=== PATIENT | female | born 1990 | race Caucasian/White ===

== ENCOUNTER 2017-09-25 11:44 | Inpatient (IN) ==
--- OUTSIDE RECORDS SUMMARY | 2017-09-25 11:51 | External Medical Summary | Continuity of Care Document ---
:1990 Author Organization [facility] Address [address] [place], [place] [address] Phone Care Team Providers Name Role Phone Friend DO, Jill Unavailable Unavailable Allergies, Adverse Reactions, Alerts Substance Reaction Severity Status No Known Drug Allergies Unknown Active Medications Medication Instructions Dosage Effective Dates Status Comments (start - stop) citalopram 20 mg take 1 tablet by 20 MG - Active tablet oral route every day Vitamin take 1 tablet by Not Available - Active tablet oral route every day Problems Condition Effective Dates (start - stop) Clinical Status Maternal care for oth - abnormality and damage, unsp Encounter for suprvsn of normal - , second trimester 24 weeks gestation of - Maternal care for oth - abnormality and damage, unsp Encounter for suprvsn of normal - , second trimester 20 weeks gestation of - Maternal care for oth - abnormality and damage, unsp Obesity complicating , second - trimester 24 weeks gestation of - Obesity complicating , first - trimester Smoking (tobacco) complicating - , first trimester Encntr screen for infections w sexl - mode of transmiss Encounter for screening for oth - infec/parastc diseases Encounter for suprvsn of normal - , first trimester Encounter for screening of - mother 10 weeks gestation of - Obesity complicating , second - trimester Encounter for suprvsn of normal - , second trimester 20 weeks gestation of - Obesity complicating , second - trimester Smoking (tobacco) complicating - , second trimester Encounter for suprvsn of normal - , second trimester 18 weeks gestation of - Obesity complicating , second - trimester Encounter for suprvsn of normal - , second trimester 14 weeks gestation of - Obesity complicating , third - trimester Smoking (tobacco) complicating - , third trimester Encounter for suprvsn of normal - , third trimester 28 weeks gestation of - Procedures Procedure Date Unknown Results Test Name Date and Time Measure Units Reference Range Abnormal Flag Comments Unknown Advance Directives Directive Yes / No Effective Date File Name Unknown Encounters Encounter Practice Location Reason(s) Diagnoses Date Provider Care Team Description For Visit Members Aparna Moreno Obesity Dec-1 Sobbing Referring In Womens complicating 8-[address] [employer]. Provider: Matthew LOPEZ, , third 7 700 [address] [address] trimesterSmoking Medical Sobbing L, 1522, (tobacco) [address], , third [address] [place] [id number], trimesterEncounte [address], Drive r for suprvsn of [facility] [address], tel:[phone] normal , [place], [place], [address] third [email or web address] [address], [place], [address]. weeks gestation [place]. tel:316 of tel: [phone] Aparna Moreno Dec-0 Sobbing In Womens 6-[address] [employer]. Matthew LOPEZ, 7 700 [address], [place], [place], [address] [id number], 120, [place], tel:[phone] [place], [address], [place]. tel: [phone] Aparna Moreno Maternal care for Nov-2 Sobbing Referring In Womens oth 0-201 [employer]. Provider: Matthew LOPEZ, abnormality and 7 700 [address] PO Box damage, Medical [place] L, 1522, unspEncounter for Center [address] [place], [place] [address]ta, suprvsn of normal Drive, Medical [place], , second Suite [address] [id number], [email or web address] weeks 120, Drive [place] gestation of Josh, [address], tel:+[phone] [place], [address], [place], [address]. [place]. tel: tel: [phone] Aparna Moreno Maternal care for Nov-2 Sobbing Referring In Womens Ultrasound oth 0-201 [employer]. Provider: Health JOHN, abnormality and 7 [address] [employer] PO Box damage, Medical Sob[place] L, 1522, unspObesity Center [address] [place], complicating [facility], [facility] [place], , second [address] [id number], [email or web address] weeks 120, Drive [place] gestation of Josh, [address], tel:[phone] [place], [address], [place], [address]. [place]. tel: tel: [phone] Aparna Moreno Maternal care for Oct-2 Sobbing Referring In Womens oth 5-[address] [employer]. Provider: Health JOHN, abnormality and 7 700 [employer] PO Box damage, Medical Sobbing L, 1522, unspEncounter for Center [address] [place], suprvsn of normal [facility], [facility] KARINA, , second [address] [id number], [email or web address] weeks 120, Drive US gestation of Josh, [address], tel:[phone] [place], [address], [place], [address]. [place]. tel: tel: [phone] Aparna Moreno Obesity Oct-2 Sobbing Referring In Womens Ultrasound complicating 5-[address] [employer]. Provider: Health [place], , second 7 700 [address] PO Box trimesterEncounte Medical Sobbing L, 1522, r for suprvsn of Center [address] [place], normal , Drive, Medical [place], second [address] [id number], weeks 120, Drive [place] gestation of Josh, [address], tel:+[phone] [place], [address], [place], [address]. [place]. tel: tel: [phone] Aparna Moreno Obesity Oct-1 Sobbing Referring In Womens complicating 2-[address] [employer]. Provider: Health [place], , second 7 700 [facility] Box trimesterSmoking Medical Sobbing L, 1522, (tobacco) Center [address] [place], complicating [facility], [facility], , second [address] [id number], trimesterEncounte 120, Drive US r for suprvsn of [facility] 120, tel:+ normal , KARINAJosh, second [address], [place], [address]. [email or web address] weeks [place]. tel: gestation of tel: [phone] [facility] Obesity Sep-1 Sobbing Referring In Womens complicating 5-[address] [employer]. Provider: Health [place], , second 7 700 [facility] Box trimesterEncounte Medical Sobbing L, 1522, r for suprvsn of Center [address] [place], normal , [facility], [facility], second [address] [id number], [email or web address] weeks 120, Drive US gestation of [facility] [address], tel: [place], [address], [place], [address]. [place]. tel: tel: [phone] [facility] Obesity Aug-1 Sobbing Referring In Womens complicating 4-[address] [employer]. Provider: Health [place], , first 7 700 [facility] trimesterSmoking Medical Sobbing L, 1522, (tobacco) Center [address] [place], [facility], [facility], , first [address] [id number], trimesterEncntr 120, Drive US screen for [place], [address], tel: infections w sexl [place], [place] [address], [place], [address]. transmissEncounte [place]. tel: r for screening tel: [phone] for oth [phone] infec/parastc diseasesEncounter for suprvsn of normal , first trimesterEncounte r for screening of [email or web address] weeks gestation of Associates [facility] Jan-1 Sobbing In Womens 8-[address] [employer]. Health [place], 7 700 [address], [place], Drive, [place], [address] [id number], 120, [place] Josh, tel: [place], [address], [place]. tel: [phone] Family History Family Member Diagnosis Age At Onset No family history of Diabetes No family history of Hypertension No family history of Stroke No family history of Epilepsy No family history of Colon Cancer No family history of Osteoporosis No family history of Kidney Disease No family history of Breast Cancer No family history of Lung Disease No family history of Ovarian Cancer No family history of Cardiovascular Disease No family history of Thyroid Disorder Immunizations Vaccine Date Status Comments Tdap completed Source: New Immunization Record Influenza, injectable, completed Source: New Immunization Record quadrivalent, preservative free, 3 yrs or older Payers Payer name Insurance type Covered alliance party ID Authorization(s) [employer] [place] [id number] [employer] [place] [employer] [place] Medicaid [place] [id number] [employer] [place] [id number] [employer] [place] [id number] [employer] [place] [employer] [place] Medicaid [place] [id number] Social History Type Description Quantity Date Captured Unknown Vital Signs Date / Height Weight BMI Pulse Blood Temperature Respiratory Body Head BMI Time: Rate Pressure Rate Surface Circumference percentile Area Unknown Chief Complaint And Reason For Visit Unknown Chief Complaint And Reason For Visit Reason For Referral Reason For Referral Unknown Plan Of Care Date Type Action Status Appointment Karo Fernandes BOOKED Future Order: Radiology Order Ultrasound, OB Limited ([id number]) Ordered Future Order: Radiology Order Complete OB Ultrasound > 14 Ordered Weeks ([id number]) Date Type Problem Goal Intervention Status Start Date Unknown. History Of Present Illness Encounter Date Complaint History Of Present Illness This patient has no known history of present illness Functional Status Encounter Date Functional Assessment Cognitive Assessment Unknown Medications Administered Medication Instructions Dosage Effective Dates (start - stop) Status Comments Drug Treatment Unknown Instructions Date Instruction Additional Information HIV and other routine tests risk factors identified by history anticipated course of care nutrition and weight gain counseling, special diet toxoplasmosis precautions (cats / raw meat) sexual activity exercise indications for ultrasound influenza vaccine environmental / work hazards travel tobacco (ask, advise, assess, assist and arrange) alcohol illicit / recreational drugs use of any medications (including supplements, vitamins, herbs, OTC drugs) smoking counseling domestic violence seat belt use childbirth classes / hospital facilities hospital registration genetic testing new ob handbook risks
--- OUTSIDE RECORDS SUMMARY | 2017-09-25 11:51 | External Medical Summary | Continuity of Care Document ---
:1990 Author Organization [facility] Address [address] [place], [place] [id number] Phone Care Team Providers Name Role Phone [...] abnormality and damage, unsp Obesity complicating , third - trimester Encounter for suprvsn of normal - , third trimester 30 weeks gestation of - Maternal care for oth - abnormality and damage, unsp Obesity complicating , third - trimester Encounter for suprvsn of normal - , third trimester 32 weeks gestation of - Maternal care for [...] - trimester 24 weeks gestation of - Maternal care for oth - abnormality and damage, unsp Obesity complicating , third - trimester 32 weeks gestation of - Obesity complicating , [...] weeks gestation of - Procedures Procedure Date OB Visit No Charge Results Test Name Date and Time Measure Units Reference Range Abnormal Flag Comments Unknown Advance Directives Directive Yes / No Effective Date File Name Unknown Encounters Encounter Practice Location Reason(s) Diagnoses Date Provider Care Team Description For Visit Members [facility] Maternal care for Sobbing Referring In Womens oth 7 [place]. Provider: Health [place], abnormality and 8 700 [place] PO [address] damage, Medical Sobbing L, 1522, unspObesity Center [address] [place], complic[address], Medical [place], , third [address] [id number], trimesterEncounte 120, Drive r for suprvsn of [place], [address], tel:[phone] normal , KARINA [place], third [email or web address] [address], [place], [address]. weeks gestation [place]. tel: of tel: [phone] Aparna Moreno Maternal care for Amadeo-1 Sobbing Referring In Womens Ultrasound oth 7-201 [place]. Provider: Matthew LOPEZ, abnormality and 8 700 [place] PO Box damage, Medical Sob[place] L, 1522, unspObesity Center [address] [place], complicating [address], Medical [place], , third Suite [address] [id number], [email or web address] weeks 120, Drive [place] gestation of [place], [address], tel:+[phone] K[place], [address], [place], [address]. [place]. tel: tel: [phone] Aparna Moreno Maternal care for Amadeo-0 Sobbing Referring In Womens ot 2-201 [place]. Provider: Matthew LOPEZ, abnormality and 8 700 [place] PO Box damage, Medical [place] L, 1522, unspObesity Center [address] [place], complicating [address], Medical [place], , third Suite Center [id number], trimesterEncounte 120, Drive US r for suprvsn of Josh, [address], tel:+[phone] normal , KARINA [place], third [email or web address] [address], [place], [address]. weeks gestation [place]. tel:316 of tel: [phone] Aparna Moreno Obesity Dec-1 Sobbing Referring In Womens complicating [place]. Provider: Matthew LOPEZ, , third 7 700 [place] PO Box trimesterSmoking Medical Sobbing L, 1522, (tobacco) Center [address] [place], complicating [address], Medical [place], , third Suite Center [id number], trimesterEncounte 120, Drive US r for suprvsn reg [place], [address], tel:+[phone] normal , KARINA [place], third [email or web address] [address], [place], [address]. weeks gestation [place]. tel:316 of tel: [phone] Aparna Moreno Maternal care for Nov-2 Sobbing Referring In Womens oth 0-201 [place]. Provider: Matthew LOPEZ, abnormality and 7 700 [address] PO Box damage, Medical Sobbing L, 1522, unspEncounter for Center [address] [place], suprvsn of normal Drive, Medical [place], , second Suite [address] [id number], [email or web address] weeks 120, Drive US gestation of Josh, [address], tel:[phone] [place], [address], [place], [address]. [place]. tel: tel: [phone] Aparna Moreno Maternal care for Nov-2 Sobbing Referring In Womens Ultrasound oth 0-201 [place]. Provider: Health [place], abnormality and 7 700 [place] PO Box damage, Medical Sobbing L, 1522, unspObesity Center [address] [place], complicating [facility], [facility] [place], , second Suite [address] [id number], weeks 120, Drive US gestation of Josh, [address], tel:+[phone] [place], [address], [place], [address]. [place]. tel: tel: [phone] Aparna Moreno Maternal care for Oct-2 Sobbing Referring In Womens oth 5-201 [place]. Provider: Health [place], abnormality and 7 700 [place] PO Box damage, Medical Sob[place] L, 1522, unspEncounter for Center [address] [place], suprvsn of normal [facility], [facility] [place], , second Suite Center [id number], [email or web address] weeks 120, Drive US gestation of [place], [address], tel:+[phone] [place], [address], [place], [address]. [place]. tel: tel: [phone] Aparna Moreno Obesity Oct-2 Sobbing Referring In Womens Ultrasound complicating 5-201 [place]. Provider: Health [place], , second 7 700 [place] [address] Box trimesterEncounte Medical Sobbing L, 1522, r for suprvsn of Center [address] [place], normal , Drive, [facility], second Suite [address] [id number], [email or web address] weeks 120, Drive US gestation of [place], [address], tel:+[phone] [place], [address], [place], [address]. [place]. tel: tel: [phone] Aparna Moreno Obesity Oct-1 Sobbing Referring In Womens complicating 2-201 [place]. Provider: Health [place], , second 7 700 [facility] Box trimesterSmoking Medical Sobbing L, 1522, (tobacco) Center [address] [place], complicating [facility], [facility], , second Suite Center [id number], trimesterEncounte 120, Drive US r for suprvsn of [facility] 120, tel:+ normal , [place], second [address], [place], [address]. [email or web address] weeks [place]. tel:316 gestation of tel: [phone] [facility] Obesity Sep-1 Sobbing Referring In Womens complicating 5-201 [place]. Provider: Health JOHN, , second 7 700 [facility] trimesterEncounte Medical Sobbing L, 1522, r for suprvsn of Center [address] [place], normal , [facility], [facility], second Suite Center [id number], [email or web address] weeks 120, Drive US gestation of [facility] 120, tel: [place], [address], [place], [address]. [place]. tel: tel: [phone] [facility] Obesity Aug-1 Sobbing Referring In Womens complicating 4-201 [place]. Provider: Matthew LOPEZ, , first 7 700 [facility] trimesterSmoking Medical Sobbing L, 1522, (tobacco) Center [address] [place], complicating [facility], [facility], , first Suite Center [id number], trimesterEncntr 120, Drive US screen for [place], [address], tel:2 infections w sexl [place], [place] [address], [place], [address]. transmissEncounte [place]. tel: r for screening tel: [phone] for oth [id number] infec/parastc diseasesEncounter for suprvsn of normal , first trimesterEncounte r for screening of [email or web address] weeks gestation of Aparna Moreno Jan- Sobbing In Womens 8-201 [place]. Health JOHN, 7 700 [address], Center [place], [facility], [place], [address] [id number], 120, [place], tel:[phone] [place], [address], . tel: [phone] Family History Family Member Diagnosis Age At [...] older Payers Payer name Insurance type Covered republican ID Authorization(s) BC[employer] Out Of [place] [id number] [employer] [place] [employer] [place] Medicaid [place] [id number] [employer] [place] [id number] [employer] [place] [id number] [employer] [place] [employer] [place] Medicaid [place] [id number] Social History Type Description Quantity Date Captured Alcohol Use Details No Caffeine Use Details Unknown Tobacco Use Status Smoking Status Former smoker Vital Signs Date / Height Weight BMI Pulse Blood Temperature Respiratory Body Head BMI Time: Rate Pressure Rate Surface Circumference percentile Area 226.20 34.3 132/77 -2018 lbs 9 mm[Hg] 3:18 kg/m PM eter (2) Chief Complaint And Reason For Visit Unknown Chief Complaint And Reason For Visit Reason For Referral Reason For Referral Unknown Plan Of Care Date Type Action Status Appointment Karo Fernandes BOOKED Appointment Karo Fernandes BOOKED Appointment Karo Fernandes BOOKED Appointment Karo Fernandes BOOKED Appointment Karo Fernandes BOOKED Future Order: Radiology Order Ultrasound, OB Limited ([id number]) Ordered Future Order: Radiology Order Ultrasound OB Follow-up ([id number]) Ordered Future Order: Radiology Order Complete OB Ultrasound > 14 Ordered Weeks ([id number]) Date Type Problem Goal Intervention Status Start [...]
--- OUTSIDE RECORDS SUMMARY | 2017-09-25 11:51 | External Medical Summary ---
:1990 Author Organization [employer] Care Team Providers Name Role Phone Lauren Sexton Provider Role Unavailable Allergies No Known Allergies Problems Problem Type Condition Code Onset Dates Condition Status Problem Nicotine dependence F17.200 Active Assessment Positive depression screening R68.89 Active Problem Positive depression screening R68.89 Active Medications Medication Code System Code Instructions Start End Date Status Dosage Date Monistat 1-Day [facility] 88333-691 6.5 % Vaginal not defined 01 Procedures Procedure Coding System Code Date Behavior Intervention CPT-4 17473 May 27, 2016 Behavior Assessment, Initial CPT-4 64964 May 27, 2016 Results No Known Results Summary Purpose [employer] Submission
--- OUTSIDE RECORDS SUMMARY | 2017-09-25 11:51 | External Medical Summary ---
:1991 Author Organization [facility] Address [address] [place], [place] [address] Care Team Providers Name Role Phone Friend, Jill Unavailable Unavailable PROBLEMS Type Condition ICD9-CM Code [id number] Onset Condition SNOMED Code Code Dates Status Problem Depression F32.9 Active 79002734 (emotion) Problem Positive R68.89 Active 682139585280543 depression screening Problem Nicotine F17.200 Active 54338376 dependence ALLERGIES Unknown Allergies SOCIAL HISTORY No smoking Hx information available PLAN OF CARE VITAL SIGNS MEDICATIONS Medication Instructions Dosage Frequency Start End Date Duration Status Date Citalopram Orally Once a 1 tablet May, day(s) Active Hydrobromide 20 day in the 2016 MG morning RESULTS No Results PROCEDURES No Known procedures IMMUNIZATIONS No Known Immunizations
--- OUTSIDE RECORDS SUMMARY | 2017-09-25 11:51 | External Medical Summary ---
:1990 Author Organization [employer] Care Team Providers Name Role Phone Cristina Evans Provider Role Unavailable Allergies No Known Allergies Problems Problem Type Condition Code Onset Dates Condition Status Problem Nicotine dependence F17.200 Active Problem Positive depression screening R68.89 Active Medications Medication Code System Code Instructions Start End Date Status Dosage Date Citalopram [facility] 38435-31 20 MG Orally Oct 26, 1 tablet Hydrobromide 41-01 Once a day 2015 Results No Known Results Summary Purpose [employer]Works Submission
--- OUTSIDE RECORDS SUMMARY | 2017-09-25 11:51 | External Medical Summary ---
:1990 Author Organization [employer] Care Team Providers Name Role Phone Lauren Sexton Provider Role Unavailable Allergies No Known Allergies Problems Problem Type Condition Code Onset Dates Condition Status Problem Nicotine dependence F17.200 Active Assessment Positive depression screening R68.89 Active Problem Positive depression screening R68.89 Active Medications Medication Code Code Instructions Start End Date Status Dosage System Date Citalopram [facility] 60772-51 20 MG Orally Oct 26, 1 tablet Hydrobromide 41-01 Once a day 2015 Monistat 1-Day [facility] 12699-07 6.5 % Vaginal not defined 101 Procedures Procedure Coding System Code Date Behavior Intervention CPT-4 50493 Jun 04, 2016 Results No Known Results Summary Purpose [employer]Works Submission
--- OUTSIDE RECORDS SUMMARY | 2017-09-25 11:51 | External Medical Summary | Continuity of Care Document ---
:1991 Author Organization [facility] Address [address] [place], [place] [id number] Phone Care Team Providers Name Role Phone Friend DO, Jill Unavailable Unavailable Allergies, Adverse Reactions, Alerts Substance Reaction Severity Status No Known Drug Allergies Unknown Active Medications Medication Instructions Dosage Effective Dates Status Comments (start - stop) vitamin B complex take 1 tablet 3 - Active tablet times a day Unisom take 1/2 tab every - Active (doxylamine) 25 mg night at bedtime tablet citalopram 20 mg take 1 tablet by [...] second trimester 14 weeks gestation of - Procedures Procedure Date Ultrasnd exam, preg uterus, limited Echo exam of heart Doppler color flow mapping Results Test Name Date and Time Measure Units Reference Range Abnormal Flag Comments Unknown Advance Directives Directive Yes / No Effective Date File Name Unknown Encounters Encounter Practice Location Reason(s) Diagnoses Date Provider Care Team Description For Visit Members Aparna Moreno Maternal care for Jun- Sobbing Referring In Womens oth 0-201 [place]. Provider: Matthew LOPEZ abnormality and [place] [address] damage, Medical [place], 1522, unspEncounter for Center [address] [place], suprvsn of normal [facility] [place], , second Suite Center , [email or web address] weeks 120, Drive US gestation of [facility] 120, tel:+[phone] [place], [address], [place], [address]. [place]. tel: tel: [phone] Aparna Moreno Maternal care for Jun- [place] Referring In Womens Ultrasound oth 0-201 [place]. Provider: julio Perales and 7 [address] damage, Medical [place], 1522, unspObesity Center [address] [place], complicating [facility], [facility], , second Suite Center [id number], [email or web address] weeks 120, Drive US gestation of [place], [facility] 120, tel:+[phone] KARINAJosh, [address], [place], [address]. [place]. tel: tel: [phone] Associates [facility] Maternal care for Oct-2 Sobbing Referring In Womens oth [place]. Provider: Matthew LOPEZ, abnormality and 7 [address] [place] [address] damage, Medical [place], 1522, unspEncounter for Center [address] [place], suprvsn of normal [facility], Medical [place], , second Suite Center [id number], weeks 120, Drive US gestation of [place], [address], tel:+[phone] [place], [address], [place], [address]. [place]. tel: tel: [phone] [facility] Obesity Oct-2 Sobbing Referring In Womens Ultrasound complicating [place]. Provider: Matthew LOPEZ, , second 7 700 [facility] Box trimesterEncounte Medical [place] L, 1522, r for suprvsn of Center [address] [place], normal , Drive, Medical [place], second Suite Center [id number], weeks 120, Drive US gestation of [place], [address], tel:3162 [place], [address], [place], [address]. [place]. tel: tel: [phone] [facility] Obesity Oct-1 Sobbing Referring In Womens complicating [place]. Provider: Matthew LOPEZ, , second 7 700 [facility] Box trimesterSmoking Medical [place] L, 1522, (tobacco) Center [address] [place], complicating [facility], Medical [place], , second Suite Center [id number], trimesterEncounte 120, Drive US r for suprvsn of [facility] 120, tel:[phone] normal , KARINA, [place], [place] [address], [place], [address]. weeks [place]. tel: gestation of tel: [phone] [facility] Obesity Sep-1 Sobbing Referring In Womens complicating [place]. Provider: Matthew LOPEZ, , second 7 [address] trimesterEncounte Medical [place] L, 1522, r for suprvsn of Center [address] [place], normal , Drive, Medical [place], second Suite Center [id number], [email or web address] weeks 120, Drive US gestation of [place], [address], tel: KARINA, [place], [address], [place], [address]. [place]. tel: tel: [phone] [facility] Obesity Mar- Sobbing Referring In Womens complicating 4-201 [place]. Provider: [facility] [place], , first 7 700 [place] PO Box trimesterSmoking Medical [place] L, 1522, (tobacco) Center [address] [place], [facility], Medical [place], , first Suite Center [id number], trimesterEncntr 120, Drive US screen for Josh, [address], tel: infections w sexl KARINA, [place], [place] [address], [place], [address]. transmissEncounte [place]. tel: r for screening tel: [phone] for oth [phone] infec/parastc diseasesEncounter for suprvsn of normal , first trimesterEncounte r for screening of [email or web address] weeks gestation of Aparna Moreno Jan- Sobbing In Womens 8-201 [place]. Health [place], 7 700 PO [address] Medical 1522, Center [place], [facility], [place], [address] [id number], 120, [place] Josh, tel: KARINA, [address], [place]. tel: [phone] Family History Family Member Diagnosis Age At [...] Thyroid Disorder Immunizations Vaccine Date Status Comments Influenza, injectable, completed Source: New Immunization Record quadrivalent, preservative free, 3 yrs or older Payers Payer name Insurance type Covered alliance party ID Authorization(s) BCBS Out Of State [id number] [employer] [place] [employer] - Medicaid [place] [id number] BCBS Out Of State [id number] Social History Type Description Quantity Date Captured [...] Future Order: Radiology Order Ultrasound, OB Limited ([id number]) Ordered Future Order: Radiology Order Complete OB Ultrasound > 14 Ordered Weeks ([id number]) Date Type Problem Goal Intervention Status Start [...]
--- OUTSIDE RECORDS SUMMARY | 2017-09-25 11:51 | External Medical Summary ---
:1990 Author Organization [employer] Care Team Providers Name Role Phone Meena Steel Provider Role Unavailable Allergies, Adverse Reactions, Alerts Substance Reaction Event Type N.K.D.A. Info Not Available Non Drug Allergy Problems Problem Type Condition Code Onset Dates Condition Status Assessment OCP (oral contraceptive pills) V25.01 Active initiation Assessment Screening for cervical cancer V76.2 Active Assessment Encounter for IUD removal V25.12 Active Medications Medication Code System Code Instructions Start Date End Date Status Dosage Sprintec 28 [facility] 44387-501 0.25-35 MG-MCG December 19 tablet 6-58 Orally Once a day 2014 Procedures Procedure Coding System Code Date REMOVE INTRAUTERINE DEVICE CPT-4 70164 December 19, 2014 OFFICE VISIT EST PATIENT LEVEL 3 CPT-4 53667 December 19, 2014 URINE TEST CPT-4 62249 December 19, 2014 Vital Signs Date/Time: December 19, 2014 BMI 21.89 Index Weight 157 lbs Height 71 in Blood Pressure Diastolic 68 mm Hg Blood Pressure Systolic 112 mm Hg Cardiac Monitoring Heart Rate 68 /min Temperature 97 F Respiratory Rate 16 /min Results No Known Results Summary Purpose eClinicalWorks Submission
--- OUTSIDE RECORDS SUMMARY | 2017-09-25 11:52 | External Medical Summary | Continuity of Care Document ---
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 Provider: Matthew LOPEZ, abnormality and 7 700 [place] PO [address] damage, Medical [place], 1522, unspEncounter for Center [address] [place], suprvsn of normal [facility], , second Suite Center , [email or web address] weeks 120, Drive US gestation of [facility] 120, tel:+ [place], [address], [place], [address]. [place]. tel: tel: [phone] Aparna Moreno Obesity Oct-2 Sobbing Referring In Womens Ultrasound complicating [place]. Provider: Matthew LOPEZ, , second 7 700 [place] PO Box trimesterEncounte Medical [place] L, 1522, r for suprvsn of Center [address] [place], normal , Drive, [facility], second Suite Center [id number], [email or web address] weeks 120, Drive US gestation of [facility] 120, tel:316 Josh [place], [address], [place], [address]. [place]. tel: tel: [phone] Aparna Moreno Obesity Oct-1 Sobbing Referring In Womens complicating [place]. Provider: Matthew LOPEZ, , second 7 700 [place] PO Box trimesterSmoking Medical [place] L, 1522, (tobacco) Center [address] [place], complicating [facility], , second Suite Center [id number], trimesterEncounte 120, Drive US r for suprvsn of [place], [address], tel: normal , K[place]INAJosh, [place] [address], [place], [address]. [email or web address] weeks [place]. tel: gestation of tel: [phone] [facility] Obesity Sep-1 Sobbing Referring In Womens complicating 5-201 [place]. Provider: Health [place], , second 7 700 [facility] trimesterEncounte Medical [place] L, 1522, r for suprvsn of Center [address] [place], normal , [facility], [facility], second Suite Center [id number], [email or web address] weeks 120, Drive US gestation of [place], [facility] 120, tel: KARINAJosh, [address], [place], [address]. [place]. tel: tel: [phone] [facility] Obesity Aug- Sob[place] Referring In Womens complicating 4-201 [place]. Provider: [facility] [place], , first 7 700 [facility] trimesterSmoking Medical [place] L, 1522, (tobacco) Center [address] [place] [address], complicating [facility], [facility], , first Suite Center [id number], trimesterEncntr 120, Drive US screen for [place], [facility] 120, tel: infections w sexl [place], [place] [address], [place], [address]. transmissEncounte [place]. tel: r for screening tel: [phone] for oth [id number] infec/parastc diseasesEncounter for suprvsn of normal , first trimesterEncounte r for screening of weeks gestation of Aparna Moreno Jan- Sobbing In Womens 8-201 [place]. Health [place], 7 700 [address] Medical [address], Center [place], Drive, [place], [address] [id number], 120, [place] Josh, tel: K[place], [address], [place]. tel: [phone] Family History Family Member Diagnosis Age At [...] older Payers Payer name Insurance type Covered constitution party ID Authorization(s) BCBS Out Of State [id number] [employer] [place] [employer] - Medicaid [place] [id number] BCBS Out Of [facility] [id number] Social History Type Description Quantity Date Captured Alcohol Use Details No Caffeine Use Details Unknown Tobacco Use Status Smoking Status Former smoker Vital Signs Date / Height Weight BMI Pulse Blood Temperature Respiratory Body Head BMI Time: Rate Pressure Rate Surface Circumference percentile Area 201.00 30.5 134/2017 lbs 6 mm[Hg] 1:50 kg/m PM eter (2) Chief Complaint And Reason For Visit Unknown Chief Complaint And Reason For Visit Reason For Referral Reason For Referral Unknown Plan Of Care Date Type Action Status Appointment Karo Fernandes BOOKED Appointment Karo Fernandes BOOKED Future Order: Radiology Order Complete OB Ultrasound > 14 Ordered Weeks ([id number]) Date Type Problem Goal Intervention Status Start [...]
--- OUTSIDE RECORDS SUMMARY | 2017-09-25 11:52 | External Medical Summary ---
:1991 Author Name GENERATED, SYSTEM Care Team Providers Name Role Phone MD EFRAIN, KRISHNA Primary Care Provider [phone] Reason For Visit Chief Complaint PATELLA DISLOCATION Social History Functional Status Vital Signs Results Problems Encounter Diagnosis No relevant problems exist. Encounters Encounter Diagnosis No relevant problems exist. Plan of Care Procedures Completed , on 08/03/2009 12:00 AM Immunizations No immunizations administered or ordered. Hospital Course Hospital Discharge Instructions Allergies, Adverse Reactions, Alerts Latex Allergy has not been assessed.IV Contrast Allergy has not been assessed.No Known Drug Allergies. Medication Medication reconciliation has not been performed.
--- OUTSIDE RECORDS SUMMARY | 2017-09-25 11:52 | External Medical Summary | Continuity of Care Document ---
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 Provider: Health [place], abnormality and 8 [address] [place] [address] damage, Medical [place], 1522, unspObesity Center [address] [place], complicating [address], Medical [place], , third Suite Center [id number], trimesterSmoking 120, Drive US (tobacco) [place], [address], tel:+[phone] complicating Josh [place], , [place] [address], [place], [address]. [email or web address] weeks [place]. tel: gestation of tel: [phone] Aparna Moreno Maternal care for Aug-1 [place] Referring In Womens ot [place]. Provider: Matthew LOPEZ, abnormality and 8 [address] [place] PO [address] damage, Medical [place], 1522, unspObesity Center [address] [place], complicating [address], Medical [place], , third Suite Center [id number], trimesterEncounte 120, Drive US r for suprvsn of [place], [address], tel:+[phone] normal , [place], [place], third [email or web address] [address], [place], [address]. weeks gestation [place]. tel:316 of tel: [phone] Aparna Moreno Maternal care for Aug- Sob[place] Referring In Womens [facility] [place]. Provider: Matthew LOPEZ, abnormality and 8 700 [place] PO [address] damage, Medical [place], 1522, unspObesity Center [address] [place], complicating Drive, Medical [place], , third Suite Center [id number], [email or web address] weeks 120, Drive US gestation of [place], [address], tel:+3162 [place], [address], [place], [address]. [place]. tel: tel: [phone] Aparna Moreno Maternal care for Amadeo-0 Sob[place] Referring In Womens [facility] [place]. Provider: Matthew LOPEZ, abnormality and 8 700 [place] PO [address] damage, Medical [place], 1522, unspObesity Center [address] [place], complicating [address], Medical [place], , third Suite Center [id number], trimesterEncounte 120, Drive US r for suprvsn of [place], [address], tel:+[phone] normal , [place], [place], third [email or web address] [address], [place], [address]. weeks gestation [place]. tel: of tel: [phone] Aparna Moreno Obesity Dec-1 Sobbing Referring In Womens complicating 8-201 [place]. Provider: Matthew LOPEZ, , third 7 700 [place] PO Box trimesterSmoking Medical [place] L, 1522, (tobacco) Center [address] [place], complicating [address], Medical [place], , third Suite Center [id number], trimesterEncounte 120, Drive US r for suprvsn of [facility] [address], tel:+316 normal , KARINA Josh, third [email or web address] [address], [place], [address]. weeks gestation [place]. tel: of tel: [phone] Aparna Moreno Maternal care for Nov-2 Sob[place] Referring In Womens oth 0-201 [place]. Provider: Matthew LOPEZ, abnormality and 7 [address] [place] PO [address] damage, Medical [place] L, 1522, unspEncounter for Center [address] [place], suprvsn of normal Drive, [facility] [place], , second Suite Center [id number], [email or web address] weeks 120, Drive US gestation of [place], [address], tel:316 KAR[place], [address], [place], [address]. [place]. tel: tel: [phone] Aparna Moreno Maternal care for Nov-2 Sobbing Referring In Womens Ultrasound oth 0-201 [place]. Provider: Matthew LOPEZ, abnormality and 7 700 [place] PO Box damage, Medical [place], 1522, unspObesity Center [address] [place], complicating [address], Medical [place], , second Suite Center [id number], [email or web address] weeks 120, Drive US gestation of [place], [address], tel:316 KAR[place], [address], [place], [address]. [place]. tel: tel: [phone] Aparna Moreno Maternal care for Oct-2 Sobbing Referring In Womens oth 5-201 [place]. Provider: Matthew LOPEZ, abnormality and 7 700 [place] [address] damage, Medical [place] L, 1522, unspEncounter for Center [address] [place], suprvsn of normal Drive, Medical [place], , second Suite Center [id number], [email or web address] weeks 120, Drive US gestation of Josh [address], tel: [place], [address], [place], [address]. [place]. tel: tel: [phone] Associates [facility] Obesity Oct-2 [place] Referring In Womens Ultrasound complicating 5- [place]. Provider: Health [place], , second 7 700 [facility] trimesterEncounte Medical [place] L, 1522, r for suprvsn of Center [address] [place], normal , Drive, Medical [place], second Suite Center [id number], [email or web address] weeks 120, Drive US gestation of Josh [address], tel: [place], [address], [place], [address]. [place]. tel: tel: [phone] Associates [facility] Obesity Oct-1 Sobbing Referring In Womens complicating 2-201 [place]. Provider: Health [place], , second 7 700 [facility] trimesterSmoking Medical [place] L, 1522, (tobacco) Center [address] [place], complicating [facility], [facility], , second Suite Center [id number], trimesterEncounte 120, Drive US r for suprvsn of [place], [address], tel:+2 normal , [place], [place] [address], [place], [address]. [email or web address] weeks US. tel: gestation of tel: [phone] Associates [facility] Obesity Sep-1 Sobbing Referring In Womens complicating 5-201 [place]. Provider: Health [place], , second 7 700 [facility] trimesterEncounte Medical [place] L, 1522, r for suprvsn of Center [address] [place], normal , [facility], [facility], second Suite Center [id number], [email or web address] weeks 120, Drive US gestation of Josh [address], tel:3162 [place], [address], [place], [address]. [place]. tel: tel: [phone] Associates [facility] Obesity Aug-1 Sobbing Referring In Womens complicating 4-201 [place]. Provider: Health [place], , first 7 700 [place] PO Box trimesterSmoking Medical [place] L, 1522, (tobacco) Center [address] [place], [facility], Medical [place], , first Suite Center [id number], trimesterEncntr 120, Drive US screen for [place], [address], tel:+3162 infections [place] sexl [place], [place], [place] [address], [place], [address]. transmissEncounte [place]. tel:+316 r for screening tel: [phone] for oth [id number] infec/parastc diseasesEncounter for suprvsn of normal , first trimesterEncounte r for screening of [email or web address] weeks gestation of Associates Josh Sobbing In Womens 8201 [place]. Health [place], 7 700 [address], Center [place], [facility], [place], [address] [id number], 120, [place], tel:+[phone] KARINA, [address], . tel: [phone] Family History Family Member Diagnosis Age At [...] republican ID Authorization(s) BCBS Out Of State [id number] [employer] [place] [employer] - Medicaid [place] [id number] BCBS Out Of State [id number] BCBS Out Of [facility] [id number] [employer] [place] [employer] - Medicaid [place] [id number] Social History Type Description Quantity Date Captured Alcohol Use Details No Caffeine Use Details Tobacco Use Status Never smoked tobacco Smoking Status Former smoker Vital Signs Date / Height Weight BMI Pulse Blood Temperature Respiratory Body Head BMI Time: Rate Pressure Rate Surface Circumference percentile Area 233.20 35.4 132/77 -2018 lbs 5 mm[Hg] 3:49 kg/m PM eter (2) Chief Complaint And Reason For Visit Unknown Chief Complaint And Reason For Visit Reason For Referral Reason For Referral Unknown Plan Of Care Date Type Action Status Appointment Karo Fernandes BOOKED Appointment Karo Fernandes BOOKED Appointment Karo Fernandes BOOKED Appointment Karo Fernandes BOOKED Future Order: Radiology Order Ultrasound, OB Limited ([id number]) Ordered Future Order: Radiology Order Ultrasound OB Follow-up ([id number]) Ordered Future Order: Radiology Order Complete OB Ultrasound > 14 Ordered Weeks ([id number]) Date Type Problem Goal Intervention Status Start [...]
--- OUTSIDE RECORDS SUMMARY | 2017-09-25 11:52 | External Medical Summary | Continuity of Care Document ---
:1991 Author Organization [facility] Address [address] [place], [place] [id number] Phone Care Team Providers Name Role Phone [...] Visit Members Aparna Moreno Maternal care for Sobbing Referring In Womens oth [place]. Provider: Matthew LOPEZ, abnormality and 8 700 [place] PO Box damage, Medical Sobbing L, 1522, unspObesity Center 700 [facility], [facility], , third Suite Center [id number], trimesterEncounte 120, Drive US r for suprvsn of [place], [address], tel:[phone] normal , [place], [place], [address] third [id number] [address], [place], [address]. weeks gestation [place]. tel: of tel: [phone] Aparna Moreno Obesity Sobbing Referring In Womens complicating 8 [place]. Provider: Health JOHN, , third 7 700 [place] PO Box trimesterSmoking Medical Sobbing L, 1522, (tobacco) Center 700 [facility], [facility] [place], , third Suite Center [id number], trimesterEncounte 120, Drive US r for suprvsn of [place] [address], tel:+2 normal , [place] COLL[place], third [email or web address] [address], [place], [address]. weeks gestation [place]. tel:316 of tel: [phone] Aparna Moreno Dec-1 Sobbing In Womens 4-201 [place]. Health JOHN, 7 700 PO [address] Medical [address], Center [place], Drive, [place], [address] [id number], 120, [place], tel:+316 [place], [address], [place]. tel: [phone] Aparna Moreno Maternal care for Nov-2 Sobbing Referring In Womens ot 0-201 [place]. Provider: Matthew LOPEZ, abnormality and 7 700 [place] PO Box damage, Medical Sobbing L, 1522, unspEncounter for Center 700 [place], suprvsn of normal [facility], [facility] KARINA, , second Suite Center [id number], [email or web address] weeks 120, Drive US gestation of Josh, [address], tel:+3162 [place], [address], [place], [address]. [place]. tel: tel: [phone] Aparna Moreno Maternal care for Nov-2 Sobbing Referring In Womens Ultrasound ot 0-201 [place]. Provider: Matthew LOPEZ, abnormality and 7 700 [place] PO Box damage, Medical Sobbing L, 1522, unspObesity Center 700 [place], complicating [facility], [facility] KARINA, , second Suite Center [id number], [email or web address] weeks 120, Drive US gestation of [place], [address], tel:+[phone] [place], [address], [place], [address]. [place]. tel: tel: [phone] Aparna Moreno Maternal care for Oct-2 Sobbing Referring In Womens ot 5-201 [place]. Provider: Matthew LOPEZ, abnormality and 7 700 [place] PO Box damage, Medical Sobbing L, 1522, unspEncounter for Center 700 [place], suprvsn of normal [facility], [facility] KARINA, , second Suite Center [id number], weeks 120, Drive US gestation of Josh, [address], tel: [place], [address], [place], [address]. [place]. tel: tel: [phone] Associates Josh Obesity Oct-2 Sobbing Referring In Womens Ultrasound complicating 5-201 [place]. Provider: Health JOHN, , second 7 700 [facility] Medical Sobbing L, 1522, r for suprvsn of Center 700 [place], normal , Drive, Medical [place], second Suite Center [id number], [email or web address] weeks 120, Drive US gestation of Josh, [address], tel: [place], [address], [place], [address]. [place]. tel: tel: [phone] Associates Josh Obesity Oct-1 Sobbing Referring In Womens complicating 2-201 [place]. Provider: Health [place], , second 7 700 [facility] trimesterSmoking Medical Sobbing L, 1522, (tobacco) Center [address] [place] [address], [address], Medical [place], , second Suite Center [id number], trimesterEncounte 120, Drive US r for suprvsn of [place], [address], tel: normal , [place], second [address], [place], [address]. [email or web address] weeks [place]. tel: gestation of tel: [phone] Associates Josh Obesity Sep-1 Sobbing Referring In Womens complicating 5-201 [place]. Provider: Health JOHN, , second 7 700 [facility] trimesterEncounte Medical Sobbing L, 1522, r for suprvsn of Center 700 [place], normal , Drive, Medical [place], second Suite Center [id number], [email or web address] weeks 120, Drive US gestation of Josh, [address], tel:2 [place], [address], [place], [address]. [place]. tel: tel: [phone] Associates Josh Obesity Aug-1 Sobbing Referring In Womens complicating 4-201 [place]. Provider: Health JOHN, , first 7 700 [facility] Box trimesterSmoking Medical Sobbing L, 1522, (tobacco) Center 700 [place], [facility], [facility], , first Suite Center [id number], trimesterEncntr 120, Drive US screen for [place], [address], tel:+ infections [place] sexl [place], [place], [place] [address], [place], [address]. transmissEncounte [place]. tel:+316 r for screening tel: [phone] for oth [phone] infec/parastc diseasesEncounter for suprvsn of normal , first trimesterEncounte r for screening of [email or web address] weeks gestation of Associates Josh Sobbing In Womens 8-201 [facility], 7 700 [address] Medical [address], [facility], [place], [place], [address] [id number], 120, [place], tel: KAR[place], [address], . tel: [phone] Family History Family Member Diagnosis Age At [...] older Payers Payer name Insurance type Covered libertarian ID Authorization(s) BCBS Out Of [facility] [id number] [employer] [place] [employer] - Medicaid [place] [id number] BCBS Out Of State [id number] BCBS Out Of [facility] [id number] [employer] [place] [employer] - [place] [id number] Social History Type Description Quantity Date Captured [...] Future Order: Radiology Order Ultrasound, OB Limited (33718) Ordered Future Order: Radiology Order Complete OB Ultrasound > 14 Ordered Weeks (25484) Date Type Problem Goal Intervention Status Start [...]
--- OUTSIDE RECORDS SUMMARY | 2017-09-25 11:52 | External Medical Summary | Continuity of Care Document ---
:1991 Author Organization [facility] Address [address] [place], [place] [phone] Phone Allergies, Adverse Reactions, Alerts Substance Reaction Severity Status Substance Type Unknown Medications Medication Instructions Dosage Effective Dates Status [...] Effective Dates (start - stop) Clinical Status No Known Problems Procedures Procedure Date Unknown Results Test Name Date and Time Measure Units Reference Range Abnormal Flag Comments Unknown Advance Directives Directive Yes / No Effective Date File Name Unknown Encounters Encounter Practice Location Reason(s) Diagnoses Date Provider Care Team Description For Visit Members [facility] 2016 [place], [address], [address], [id number], [address], tel:[phone] [place], [place], [address], . tel:[phone] Family History Family Member Diagnosis Age At Onset Unknown Immunizations Vaccine Date Status Comments Unknown Payers Payer name Insurance type Covered green party ID Authorization(s) Unknown Social History Type Description Quantity Date Captured Unknown Vital Signs Date / Height Weight BMI Pulse Blood Temperature Respiratory Body Head BMI Time: Rate Pressure Rate Surface Circumference percentile Area Unknown Chief Complaint And Reason For Visit Unknown Chief Complaint And Reason For Visit Reason For Referral Reason For Referral Unknown Plan Of Care Date Type Action Status Appointment Karo Fernandes BOOKED Date Type Problem Goal Intervention Status Start Date Unknown. History Of Present Illness Encounter Date Complaint History Of Present Illness This patient has no known history of present illness Functional Status Encounter Date Functional Assessment Cognitive Assessment Unknown Medications Administered Medication Instructions Dosage Effective Dates (start - stop) Status Comments Drug Treatment Unknown Instructions Date Instruction Additional Information Unknown
--- OUTSIDE RECORDS SUMMARY | 2017-09-25 11:52 | External Medical Summary ---
:1991 Author Organization [employer] Care Team Providers Name Role Phone Friend, Jill Provider Role Unavailable Allergies, Adverse Reactions, Alerts Substance Reaction Event Type N.K.D.A. Info Not Available Non Drug Allergy Problems Problem Type Condition Code Onset Dates Condition Status Problem Positive depression screening R68.89 Active Problem Nicotine dependence F17.200 Active Problem Depression (emotion) F32.9 Active Assessment Dysuria R30.0 Active Assessment Depression (emotion) F32.9 Active Medications Medication Code Code Instructions Start End Date Status Dosage System Date Citalopram [facility] 18047-49 20 MG Orally May 27, 1 tablet Hydrobromide 41-01 Once a day in 2016 the morning Ciprofloxacin HCl [facility] 93021-56 500 MG Orally Jun 09, Jun 14, 1 tablet 37-01 Twice a day 2015 2015 Procedures Procedure Coding System Code Date URINE CULTURECOLONY COUNT CPT-4 85703 Jun 09, 2016 OFFICE VISIT EST PATIENT LEVEL 3 CPT-4 51274 Jun 09, 2016 URINALYSIS NONAUTO WO SCOPE CPT-4 01981 Jun 09, 2016 Vital Signs Date/Time: Jun 09, 2016 BMI 24.57 Index Weight 176.2 lbs Height 71 in Blood Pressure Diastolic 70 mm Hg Blood Pressure Systolic 112 mm Hg Cardiac Monitoring Heart Rate 72 /min Temperature 98.2 F Oximetry 98 % Respiratory Rate 18 /min Results No Known Results Summary Purpose eClinicalWorks Submission
--- OUTSIDE RECORDS SUMMARY | 2017-09-25 11:52 | External Medical Summary | Continuity of Care Document ---
:1991 Author Organization [facility] Address [address] [place], [place] [phone] Phone Care Team Providers Name Role Phone [...] Effective Dates (start - stop) Clinical Status Obesity complicating , first - trimester Smoking (tobacco) complicating - , first trimester Encntr screen for infections w sexl - mode of transmiss Encounter for screening for oth - infec/parastc diseases Encounter for suprvsn of normal - , first trimester Encounter for screening of - mother 10 weeks gestation of - Procedures Procedure Date OB US < 14 WKS, SINGLE FETUS Initial OB Visit No Charge Infct antign, chlamydia trac, ampl Urine Culture Glucose test OB Panel With An HIV Neisseria Gonorrhoeae, Amplification Venpnctr fngr/heel/ear stick routne Results Test Name Date and Time Measure Units Reference Range Abnormal Flag Comments Panel Description: OBSTETRIC PANEL WHITE BLOOD CELL 7.3 Thousand/uL 3.8-10.8 N COUNT 16:05:00 RED BLOOD CELL 3.71 Million/uL 3.80-5.10 L COUNT 16:05:00 HEMOGLOBIN 12.3 g/dL 11.7-15.5 N 16:05:00 HEMATOCRIT 35.4 % 35.0-45.0 N 16:05:00 MCV 95.4 fL 80.0-100.0 N 16:05:00 MCH 33.2 pg 27.0-33.0 H 16:05:00 MCHC 34.7 g/dL 32.0-36.0 N 16:05:00 RDW 11.9 % 11.0-15.0 N 16:05:00 PLATELET COUNT 196 Thousand/uL 140-400 N 16:05:00 MPV 10.1 fL 7.5-12.5 N 16:05:00 ABSOLUTE 4701 cells/uL 5626-1749 N NEUTROPHILS 16:05:00 ABSOLUTE 1869 cells/uL 850-3900 N LYMPHOCYTES 16:05:00 ABSOLUTE 482 cells/uL 200-950 N MONOCYTES 16:05:00 ABSOLUTE 219 cells/uL 15-500 N EOSINOPHILS 16:05:00 ABSOLUTE 29 cells/uL 0-200 N BASOPHILS 16:05:00 NEUTROPHILS 64.4 % N 16:05:00 LYMPHOCYTES 25.6 % N 16:05:00 MONOCYTES 6.6 % N 16:05:00 EOSINOPHILS 3.0 % N 16:05:00 BASOPHILS 0.4 % N 16:05:00 ANTIBODY SCREEN, NO ANTIBODIES N RBC W/REFL ID, 16:05:00 DETECTED Reference range TITER AND AG No antibodies detected This assay is a screening test for the detection of red blood cell antibodies. The test is not to be used for pretransfusion screening or for the medical management of an alloimmunized . ABO GROUP O 16:05:00 RH TYPE RH(D) 16:05:00 POSITIVE RPR (DX) W/REFL NON-REACTIVE NON-REACTIV N TITER AND 16:05:00 E CONFIRMATORY TESTING HEPATITIS B NON-REACTIVE NON-REACTIV N SURFACE ANTIGEN 16:05:00 E RUBELLA ANTIBODY 11.50 index N Index (IGG) 16:05:00 Interpretation ----- <0.90 Not consistent with Immunity 0.90-0.99 Equivocal > or=1.00 Consistent with Immunity The presence of rubella IgG antibody suggests immunization or past or current infection withrubella virus.Test performed at [id number] [place] [address]Hlutdyx r: JUSTO JUDD DO,MPH Panel Description: Glucose [Mass/volume] in Serum or Plasma --1 hour post 50 g glucose PO GLUCOSE, GESTATIONAL 68 mg/dL <140 N Test performed at [facility] SCREEN (50G)-140 16:05:00 DIAGNOSTICS [id number] [place] [address]Nplndvjv: JUSTO JUDD DO,MPH Panel Description: HIV 1/2 ANTIGEN/ANTIBODY,FOURTH GENERATION W/RFL HIV NON-REACTIVE NON-REACTIVE N HIV-1 antigen and HIV-1/HIV- 2 antibodies were AG/AB, 16:05:00 notdetected. There is no laboratory evidence of 4TH GEN HIVinfection. PLEASE NOTE: This information has been disclosed toyou from records whose confidentiality may beprotected by state law. If your state requires suchprotection, then the state law prohibits you frommaking any further disclosure of the informationwithout the specific written consent of the personto whom it pertains, or as otherwise permitted by law.A general authorization for the release of medical orother information is NOT sufficient for this purpose. For additional information please refer tohttp://education.kingsky/faq/UBW224(This link is being provided for informational/educational purposes only.) The performance of this assay has not been clinicallyvalidated in patients less than 2 years old. Test performed at [facility] [id number] [place] [address]Xadrywpx: JUSTO JUDD DO,MPH Panel Description: Bacteria identified in Urine by Culture CULTURE, URINE, 15:26:00 SEE NOTE CULTURE, URINE, ROUTINE ROUTINE MICRO NUMBER: [id number] TEST STATUS: FINAL SPECIMEN SOURCE: URINE SPECIMEN QUALITY: ADEQUATE RESULT: No GrowthREPORT COMMENT:RTest performed at [facility] [address] [address]Fpaccccq: JUSTO JUDD DO,MPH Panel Description: CHLAMYDIA/N. GONORRHOEAE RNA, TMA CHLAMYDIA NOT DETECTED NOT DETECTED N TRACHOMATIS RNA, 15:00:00 TMA NEISSERIA NOT DETECTED NOT DETECTED N GONORRHOEAE RNA, 15:00:00 TMA [id number] SEE NOTE This test was 15:00:00 performed using the APTIMA COMBO2 Assay([employer] The analytical performance characteristics of this assay, when used to test SurePath specimens havebeen determined by [employer] Test performed at [facility] [address] [address]Fpxmetxf: JUSTO JUDD DO,MPH Advance Directives Directive Yes / No Effective Date File Name Unknown Encounters Encounter Practice Location Reason(s) Diagnoses Date Provider Care Team Description For Visit Members Aparna Moreno Obesity Sobbing Referring In Womens complicating 4-201 [place]. Provider: Health PA, , first 7 700 [facility] Box trimesterSmoking Medical Sobbing L, 1522, (tobacco) Center 700 [place], [facility], , first Suite Center [id number], trimesterEncntr 120, Drive US screen for [place], [address], tel:+[phone] infections w sexl [place], [address] [place] [address], [place], [address]. transmissEncounter [place]. tel:+316 for screening for tel: [phone] [facility] infec/parastc [id number] diseasesEncounter for suprvsn of normal , first trimesterEncounter for screening of [email or web address] weeks gestation of Associates Josh Sobbing In Women 8-201 [facility], 7 700 [place], [place], [place], [address] [id number], 120, [place], tel:5745 [place], [address], [place]. tel: [phone] Family History Family Member Diagnosis Age At [...] Thyroid Disorder Immunizations Vaccine Date Status Comments Unknown Payers Payer name Insurance type Covered libertarian ID Authorization(s) BCBS Out Of State [id number] Social History Type Description Quantity Date Captured Alcohol Use Details No Caffeine Use Details Tobacco Use Status Never smoked tobacco Smoking Status Former smoker Non-Smoking Tobacco Use : No Details Available : No Details Available Details Vital Signs Date / Height Weight BMI Pulse Blood Temperature Respiratory Body Head BMI Time: Rate Pressure Rate Surface Circumference percentile Area 176.20 26.7 126/76 -2017 lbs 9 mm[Hg] 2:31 kg/m PM eter (2) Chief Complaint And [...]
--- OUTSIDE RECORDS SUMMARY | 2017-09-25 11:52 | External Medical Summary ---
:1991 Author Organization eClinicalWorks Care Team Providers Name Role Phone Friend, Jill Provider Role Unavailable Allergies, Adverse Reactions, Alerts Substance Reaction Event Type N.K.D.A. Info Not Available Non Drug Allergy Problems Problem Type Condition Code Onset Dates Condition Status Assessment Encounter for smoking cessation Z71.6 Active counseling Assessment Nicotine dependence F17.200 Active Problem Nicotine dependence F17.200 Active Medications Medication Code Code Instructions Start End Date Status [place] [address]-10 0.5 MG X 11 Jul 16, Aug 15, as directed Starting Month 71-02 & 1 MG X 42 2014 2015 Casey Orally [place] [address]-67 0.25-35 MG-MCG December 19, 1 tablet 16-58 Orally Once a 2014 day Chantix NDC 55378-23 1 MG Orally Jul 16, November 12, 1 tablet Continuing 69-12 Twice a day 2014 2015 Month Casey Procedures Procedure Coding System Code Date OFFICE VISIT EST PATIENT LEVEL 3 CPT-4 69094 Jul 16, 2015 Vital Signs Date/Time: Jul 16, 2015 BMI 25.24 Index Weight 181.0 lbs Height 71 in Blood Pressure Diastolic 64 mm Hg Blood Pressure Systolic 126 mm Hg Cardiac Monitoring Heart Rate 72 /min Temperature 98.4 F Respiratory Rate 18 /min Results No Known Results Summary Purpose eClinicalWorks Submission
--- OUTSIDE RECORDS SUMMARY | 2017-09-25 11:52 | External Medical Summary ---
:1991 Author Organization [employer]ClinicalWorks Care Team Providers Name Role Phone Friend, Jill Provider Role Unavailable Allergies, Adverse Reactions, Alerts Substance Reaction Event Type N.K.D.A. Info Not Available Non Drug Allergy Problems Problem Type Condition Code Onset Dates Condition Status Assessment Encounter for smoking cessation Z71.6 Active counseling Medications Medication Code Code Instructions Start End Date Status [place] [address]-72 0.5 MG X 11 Jul 16, Aug 15, as directed Starting Month 71-02 & 1 MG X 42 2014 2015 Casey Orally as directed Sprintec 28 NDC 49889-94 0.25-35 MG-MCG December 19, 1 tablet 16-58 Orally Once a 2014 day Chantix NDC 05344-14 1 MG Orally Jul 16, November 12, 1 tablet Continuing 69-12 Twice a day 2014 2015 Month Casey Procedures Procedure Coding System Code Date OFFICE VISIT EST PATIENT LEVEL 3 CPT-4 78976 Jul 16, 2015 Vital Signs Date/Time: Jul 16, 2015 BMI 25.24 Index Weight 181.0 lbs Height 71 in Blood Pressure Diastolic 64 mm Hg Blood Pressure Systolic 126 mm Hg Cardiac Monitoring Heart Rate 72 /min Temperature 98.4 F Respiratory Rate 18 /min Results No Known Results Summary Purpose eClinicalWorks Submission
--- OUTSIDE RECORDS SUMMARY | 2017-09-25 11:52 | External Medical Summary | Continuity of Care Document ---
:1991 Author Organization [facility] Address [address] [place], [place] [phone] Phone Care Team Providers Name Role Phone [...] - stop) Clinical Status Obesity complicating , second - trimester Encounter [...] [place] Obesity Sobbing Referring In Womens complicating 5-201 [place]. Provider: Health [place], , second 7 700 [place] PO Box trimesterEncounter Medical Sobbing L, 1522, for suprvsn of Center 700 [place], normal , Drive, Medical [place], second [email or web address] Suite Center [id number], weeks gestation of 120, Drive [place], [address], tel:+ [place], [address], [place], [address]. [place]. tel: tel: [phone] Aparna Moreno Obesity Mar- Sobbing Referring In Womens complicating 4-201 [place]. Provider: Health PA, , first 7 700 [place] PO Box trimesterSmoking Medical Sobbing L, 1522, (tobacco) Center 700 [place], complicating [facility], Medical [place], , first Suite Center [id number], trimesterEncntr 120, Drive US screen for [place], [address], tel:2 infections w sexl [place], [place] [address], [place], [address]. transmissEncounter [place]. tel: for screening for tel: [phone] [facility] infec/parastc [id number] diseasesEncounter for suprvsn of normal , first trimesterEncounter for screening of [email or web address] weeks gestation of Associates Josh Jan- Sobbing In Womens 8-201 [place]. Health PA, 7 700 [address], Center [place], [facility], [place], [address] [id number], 120, [place], tel: K[place], [address], [place]. tel: [phone] Family History Family Member Diagnosis Age At [...] Unknown Payers Payer name Insurance type Covered constitution party ID Authorization(s) BCBS Out Of State [id number] Social History Type Description Quantity Date Captured Alcohol Use Details No Caffeine Use Details Unknown Tobacco Use Status Smoking Status Former smoker Vital Signs Date / Height Weight BMI Pulse Blood Temperature Respiratory Body Head BMI Time: Rate Pressure Rate Surface Circumference percentile Area 188.80 28.7 122/69 -2017 lbs 0 mm[Hg] 2:27 kg/m PM eter (2) Chief Complaint And [...]
--- OUTSIDE RECORDS SUMMARY | 2017-09-25 11:52 | External Medical Summary | Continuity of Care Document ---
:1991 Author Organization [facility] Address [address] [place], [place] [id number] Phone Care Team Providers Name Role Phone [...] Status Obesity complicating , second - trimester Smoking (tobacco) complicating - , second trimester Encounter for suprvsn of normal - , second trimester 18 weeks gestation of - Maternal care for [...] Procedures Procedure Date OB Visit No Charge Immuniz admnin, 1 vac, sngl/combo 19 Yrs + Flu Vaccine - Quadrivalent Results Test Name Date and Time Measure Units Reference Range Abnormal Flag Comments Unknown Advance Directives Directive Yes / No Effective Date File Name Unknown Encounters Encounter Practice Location Reason(s) Diagnoses Date Provider Care Team Description For Visit Members Aparna Moreno Maternal care for May- Sobbing Referring In Womens oth [place]. Provider: Matthew LOPEZ, abnormality and 7 700 [place] [address] damage, Medical [place] L, 1522, unspEncounter for Center 700 [place], suprvsn of normal [facility], , second Suite Center [id number], [email or web address] weeks 120, Drive US gestation of [facility] [address], tel:+ [place], [place], [address], [place], [address]. [place]. tel: tel: [phone] Aparna Moreno Obesity May- Sobbing Referring In Womens Ultrasound complicating [place]. Provider: Matthew LOPEZ, , second 7 700 [facility] Box trimesterEncounte Medical [place], 1522, r for suprvsn of Center [address] [place], normal , Drive, Medical [place], second Suite Center [id number], [email or web address] weeks 120, Drive [place] gestation of [place], [address], tel:2 [place], [place], [address], [place], [address]. [place]. tel: tel: [phone] Aparna Moreno Obesity May- Sobbing Referring In Womens complicating - [place]. Provider: Matthew LOPEZ, , second 7 700 [place] PO Box trimesterSmoking Medical [place] L, 1522, (tobacco) Center [facility] [place], complicating Drive, [facility], , second Suite Center [id number], trimesterEncounte 120, Drive US r for suprvsn of [place] [address], tel: normal , [place], [place] [address], [place], [address]. [email or web address] weeks [place]. tel: gestation of tel: [phone] Associates Josh Obesity Sep-1 Sobbing Referring In Womens complicating 5-201 [place]. Provider: Health [place], , second 7 700 [facility] trimesterEncounte Medical [place] L, 1522, r for suprvsn of Center 700 [place], normal , [facility], second Suite Center [id number], [email or web address] weeks 120, Drive US gestation of [facility] 120, tel: [place], [address], [place], [address]. [place]. tel: tel: [phone] Associates Josh Obesity Aug-1 Sobbing Referring In Womens complicating 4-201 [place]. Provider: Health [place], , first 7 700 [facility] trimesterSmoking Medical Sob[place] L, 1522, (tobacco) Center 700 [place], complicating [facility], [facility], , first Suite Center [id number], trimesterEncntr 120, Drive US screen for [place], [address], tel: infections w sexl [place], [place] [address], [place], [address]. transmissEncounte [place]. tel: r for screening tel: [phone] for oth [phone] infec/parastc diseasesEncounter for suprvsn of normal , first trimesterEncounte r for screening of [email or web address] weeks gestation of Associates Josh Jan- Sobbing In Womens 8-201 [place]. Health JOHN, [address] [place] [address] Medical 1522, Center [place], [facility], [place], [address] [id number], 120, [place], tel: [place], [address], [place]. tel: [phone] Family History Family Member Diagnosis Age At [...] older Payers Payer name Insurance type Covered democrat ID Authorization(s) BCBS Out Of [facility] [id number] [employer] [place] [employer] - Medicaid [place] [id number] BCBS Out Of [facility] [id number] Social History Type Description Quantity Date Captured Alcohol Use Details No Caffeine Use Details Unknown Tobacco Use Status Smoking Status Former smoker Vital Signs Date / Height Weight BMI Pulse Blood Temperature Respiratory Body Head BMI Time: Rate Pressure Rate Surface Circumference percentile Area 198.60 30.1 / lbs 9 mm[Hg] 3:53 kg/m PM eter (2) Chief Complaint And Reason For Visit Unknown Chief Complaint And Reason For Visit Reason For Referral Reason For Referral Unknown Plan Of Care Date Type Action Status Appointment Karo Fernandes BOOKED Appointment Karo Fernandes BOOKED Future Order: Radiology Order Complete OB Ultrasound > 14 Ordered Weeks ([id number]) Date Type Problem Goal Intervention Status Start [...]
--- OUTSIDE RECORDS SUMMARY | 2017-09-25 11:52 | External Medical Summary | Continuity of Care Document ---
:1991 Author Organization [facility] Address [address] [place], [place] [phone] Phone Care Team Providers Name Role Phone [...] weeks gestation of - Procedures Procedure Date Ultrasound exam of preg uterus, complete Results Test Name Date and Time Measure Units Reference Range Abnormal Flag Comments Unknown Advance Directives Directive Yes / No Effective Date File Name Unknown Encounters Encounter Practice Location Reason(s) Diagnoses Date Provider Care Team Description For Visit Members Aparna Moreno Maternal care for May-2 Sobbing Referring In Womens oth [place]. Provider: Matthew LOPEZ, abnormality and 7 700 [place] [address] damage, Medical [place], 1522, unspEncounter for Center 700 [place], suprvsn of normal [facility], , second Suite Center , [email or web address] weeks 120, Drive US gestation of [facility] 120, tel:+ [place], [address], [place], [address]. [place]. tel: tel: [phone] Aparna Moreno Obesity Oct-2 Sobbing Referring In Womens Ultrasound complicating [place]. Provider: Matthew LOPEZ, , second 7 700 [place] PO Box trimesterEncounte Medical [place] L, 1522, r for suprvsn of Center 700 [place], normal , Drive, [facility], second Suite Center [id number], [id number] weeks 120, Drive US gestation of [facility] 120, tel:316 [place], [address], [place], [address]. [place]. tel: tel: [phone] Aparna Moreno Obesity Oct-1 Sobbing Referring In Womens complicating [place]. Provider: Matthew LOPEZ, , second 7 700 [place] PO Box trimesterSmoking Medical [place] L, 1522, (tobacco) Center 700 [place], complicating [facility], , second Suite Center [id number], trimesterEncounte 120, Drive US r for suprvsn of [place], [address], tel: normal , [place], second [address], [place], [address]. [email or web address] weeks [place]. tel: gestation of tel: [phone] Associates Josh Obesity Sep-1 Sobbing Referring In Womens complicating 5-201 [place]. Provider: Health [place], , second 7 700 [facility] trimesterEncounte Medical [place] L, 1522, r for suprvsn of Center 700 [place], normal , [facility], [facility], second Suite Center [id number], [email or web address] weeks 120, Drive US gestation of [place], [facility] 120, tel: [place], [address], [place], [address]. [place]. tel: tel: [phone] Associates Josh Obesity Aug- Sobbing Referring In Womens complicating 4-201 [place]. Provider: Health [place], , first 7 700 [facility] trimesterSmoking Medical [place]bing L, 1522, (tobacco) Center [address] [place] [address], complicating [facility], [facility], , first Suite Center [id number], trimesterEncntr 120, Drive US screen for [place], [facility] 120, tel: infections w sexl [place], [place] [address], [place], [address]. transmissEncounte [place]. tel: r for screening tel: [phone] for oth [phone] infec/parastc diseasesEncounter for suprvsn of normal , first trimesterEncounte r for screening of [email or web address] weeks gestation of Aparna Moreno Jan- Sobbing In Womens 8-201 [place]. Health MD, 7 700 PO Box Medical 1522, Center [place], Drive, [place], [address] [id number], 120, [place] Josh, tel: [place], [address], [place]. tel: [phone] Family History Family Member Diagnosis Age At [...] party ID Authorization(s) BCBS Out Of State [id number] [employer] [place] [employer] - Medicaid [place] [id number] BCBS Out Of State [id number] Social History Type Description Quantity Date Captured [...] Complete OB Ultrasound > 14 Ordered Weeks ([id number]) Date Type Problem Goal Intervention Status Start [...]
--- OUTSIDE RECORDS SUMMARY | 2017-09-25 11:53 | External Medical Summary ---
:1991 Author Organization [facility] Address [address], [place] [phone] Care Team Providers Name Role Phone Abril Bonner Unavailable Unavailable PROBLEMS ALLERGIES No Known Allergies ENCOUNTERS IMMUNIZATIONS No Known Immunizations SOCIAL HISTORY No smoking Hx information available REASON FOR VISIT PLAN OF CARE VITAL SIGNS MEDICATIONS RESULTS No Results PROCEDURES No Known procedures INSTRUCTIONS MEDICATIONS ADMINISTERED No Known Medications MEDICAL (GENERAL) HISTORY
--- OUTSIDE RECORDS SUMMARY | 2017-09-25 11:53 | External Medical Summary | Continuity of Care Document ---
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 Provider: Health JOHN, abnormality and 7 700 [place] [address] damage, Medical [place], 1522, unspEncounter for Center 700 [place], suprvsn of normal [facility], [facility] [place], , second Suite Center , [email or web address] weeks 120, Drive US gestation of [facility] 120, tel:+[phone] KAR[place], [address], [place], [address]. [place]. tel: tel: [phone] Aparna Moreno Maternal care for Jun- Sobbing Referring In Womens Ultrasound oth 0-201 [place]. Provider: Health JOHN, abnormality and 7 700 [place] [address] damage, Medical [place] L, 1522, unspObesity Center 700 [place], complicating [facility], [facility] [place], , second Suite Center , [email or web address] weeks 120, Drive US gestation of [facility] 120, tel:+[phone] [place], [address], [place], [address]. [place]. tel: tel: [phone] Aparna Moreno Maternal care for Oct-2 Sobbing Referring In Womens oth [place]. Provider: Health JOHN, abnormality and 7 700 [place] [address] damage, Medical [place], 1522, unspEncounter for Center [address] [place], suprvsn of normal Drive, Medical [place], , second Suite Center [id number], [email or web address] weeks 120, Drive US gestation of [facility] 120, tel:+3162 [place], [address], [place], [address]. [place]. tel: tel: [phone] Associates Josh Obesity Oct-2 Sobbing Referring In Womens Ultrasound complicating [place]. Provider: Health JOHN, , second 7 700 [facility] Box trimesterEncounte Medical Sob[place] L, 1522, r for suprvsn of Center [address] [place] [address], normal , Drive, [facility], second Suite Center [id number], weeks 120, Drive US gestation of [facility] 120, tel:+3162 [place], [address], [place], [address]. [place]. tel: tel: [phone] Associates [facility] Obesity Oct-1 Sobbing Referring In Womens complicating [place]. Provider: Matthew LOPEZ, , second 7 700 [facility] Box trimesterSmoking Medical [place]bing L, 1522, (tobacco) Center [address] [place] [address], complicating [facility], [facility] [place], , second Suite Center [id number], trimesterEncounte 120, Drive US r for suprvsn of [facility] 120, tel:+[phone] normal , [place], [place], second [address], [place], [address]. [email or web address] weeks [place]. tel: gestation of tel: [phone] Associates Josh Obesity Sep-1 Sobbing Referring In Womens complicating [place]. Provider: Health JOHN, , second 7 700 [facility] Box trimesterEncounte Medical Sobbing L, 1522, r for suprvsn of Center [address] [place], normal , Drive, Medical [place], second Suite Center [id number], [email or web address] weeks 120, Drive US gestation of [facility] 120, tel:[phone] [place], [address], [place], [address]. [place]. tel: tel: [phone] Associates Josh Obesity Mar- Sobbing Referring In Womens complicating 4-201 [place]. Provider: Health PA, , first 7 700 [place] PO Box trimesterSmoking Medical Sobbing L, 1522, (tobacco) Center [address] [place], [address]ating [address], Medical [place], , first Suite Center [id number], trimesterEncntr 120, Drive US screen for [place], [address], tel: infections w sexl [place], [place] [address], [place], [address]. transmissEncounte [place]. tel: r for screening tel: [phone] for oth [phone] infec/parastc diseasesEncounter for suprvsn of normal , first trimesterEncounte r for screening of [email or web address] weeks gestation of Associates Josh Jan- Sobbing In Womens 8-201 [place]. Health PA, 7 700 PO Box Medical 1522, Center [place], [facility], [place], [address] [id number], 120, [place], tel: [place], [address], [place]. tel: [phone] Family History Family Member Diagnosis Age At [...] republican ID Authorization(s) BCBS Out Of State [id number] [employer] [place] [employer] - Medicaid [place] [id number] BCBS Out Of [place] [id number] Social History Type Description Quantity Date Captured Alcohol Use Details No Caffeine Use Details Unknown Tobacco Use Status Smoking Status Former smoker Vital Signs Date / Height Weight BMI Pulse Blood Temperature Respiratory Body Head BMI Time: Rate Pressure Rate Surface Circumference percentile Area 211.40 32.1 130/63 -2017 lbs 4 mm[Hg] 11:30 kg/m AM eter (2) 30.2017 6 11:25 kg/m AM eter (2) Chief Complaint And Reason For Visit Unknown Chief Complaint And Reason For Visit Reason For Referral Reason For Referral Unknown Plan Of Care Date Type Action Status Appointment Karo Fernandes BOOKED Future Order: Radiology Order Ultrasound, OB Limited ([id number]) Ordered Future Order: Radiology Order Complete OB Ultrasound > 14 Ordered Weeks ([id number]) Date Type Problem Goal Intervention Status Start [...]
--- OUTSIDE RECORDS SUMMARY | 2017-09-25 11:53 | External Medical Summary ---
:1991 Author Organization [facility] Address [address] [place], [place] [address] Care Team Providers Name Role Phone Friend, Jill Unavailable Unavailable PROBLEMS Type Condition ICD9-CM Code [id number] Code Onset Condition SNOMED Code Dates Status Problem Depression F32.9 Active 14086996 (emotion) Problem Nicotine F17.200 Active 61491211 dependence ALLERGIES Substance Reaction Event Type Date Status N.K.D.A. Unknown Non Drug Allergy November, Unknown SOCIAL HISTORY No smoking Hx information available PLAN OF CARE Activity Details Follow Up 1 Year, prn Reason:null VITAL SIGNS Height 71 in 2016-12-30 Weight 176 lbs 2016-12-30 BMI 24.54 kg/m2 2016-12-30 Temperature 98.6 degrees Fahrenheit 2016-12-30 Heart Rate 89 /min 2016-12-30 Respiratory Rate 18 /min 2016-12-30 Oximetry 99 % 2016-12-30 Blood pressure systolic 116 mm Hg 2016-12-30 Blood pressure diastolic 70 mm Hg 2016-12-30 MEDICATIONS Medication Instructions Dosage Frequency Start End Duration Status Date Date Chantix Orally Twice a 1 tablet 12h 30 December, Mar, day(s) Active Continuing Month 2016 Casey 1 MG Citalopram Orally Once a 1 tablet May, days Active Hydrobromide 20 day in the 2015 MG morning Chantix Starting Orally as as directed November,, 30 days Active Month Casey 0.5 MG directed 2016 2016 X 11 & 1 MG X 42 RESULTS No Results PROCEDURES Procedure Date Ordered Related Diagnosis Body Site OFFICE VISIT EST PATIENT LEVEL 3 December 30, 2016 IMMUNIZATIONS No Known Immunizations
--- OUTSIDE RECORDS SUMMARY | 2017-09-25 11:53 | External Medical Summary ---
:1991 Author Organization [employer] Care Team Providers Name Role Phone Friend, Jill Provider Role Unavailable Allergies No Known Allergies Problems Problem Type Condition Code Onset Dates Condition Status Problem Positive depression screening R68.89 Active Problem Nicotine dependence F17.200 Active Problem Depression (emotion) F32.9 Active Assessment Negative depression screening Z13.89 Active Medications Medication Code Code Instructions Start End Date Status Dosage System Date Citalopram [facility] 96130-04 20 MG Orally Oct 26, 1 tablet Hydrobromide 41-01 Once a day in 2016 [place] [address]-40 500 MG Orally Jun 09, Jun 13, 1 tablet 37-01 Twice a day 2015 2015 Procedures Procedure Coding System Code Date Behavior Re-Assessment CPT-4 76124 Jun 09, 2016 Results No Known Results Summary Purpose [employer] Submission
--- OUTSIDE RECORDS SUMMARY | 2017-09-25 11:53 | External Medical Summary | Continuity of Care Document ---
:1990 Author Organization [facility] Address [address] [place], [place] [id number] Phone Care Team Providers Name Role Phone [...] - stop) Clinical Status Obesity complicating , third - trimester Smoking (tobacco) complicating - , third trimester Encounter for suprvsn of normal - , third trimester 28 weeks gestation of - Maternal care for [...] admnin, 1 vac, sngl/combo 19 Yrs + TDAP VACCINE >7 IM Results Test Name Date and Time Measure Units Reference Range Abnormal Flag Comments Panel Description: Glucose [Mass/volume] in Serum or Plasma --1 hour post 50 g glucose PO GLUCOSE, 126 mg/dL <140 N Test performed at [facility] GESTATIONAL SCREEN 16:08:00 [employer] [id number] (50G)-[address] [place] [address]Sewhzdts: JUSTO JUDD DO,MPH Panel Description: HEMOGLOBIN + HEMATOCRIT HEMOGLOBIN 16:08:00 12.3 g/dL 11.7-15.5 N HEMATOCRIT 16:08:00 36.5 % 35.0-45.0 N Test performed at [facility] [id number] [place] [address]Pvugdkzf: JUSTO JUDD DO,MPH Panel Description: Varicella zoster virus IgG Ab [Units/volume] in Serum by Immunoassay VARICELLA ZOSTER 2379.00 index N Index VIRUS ANTIBODY 16:08:00 Interpretation --------- (IGG) <135.00 Negative - Antibody not detected 135.00 - 164.99 Equivocal > ed=059.00 Positive - Antibody detected A positive result indicates that the patient has antibody to VZV but does not differentiate between an active or past infection. The clinical diagnosis must be interpreted in conjunction with the clinical signs and symptoms of the patient. This assay reliably measures immunity due to previous infection but may not be sensitive enough to detect antibodies induced by vaccination. Thus, a negative result in a vaccinated individual does not necessarily indicate susceptibility to VZV infection.REPORT COMMENT:FASTING:NOTest performed at [facility] [id number] [place] [address]Ojimzjrl: JUSTO JUDD DO,MPH Advance Directives Directive Yes / No Effective Date File Name Unknown Encounters Encounter Practice Location Reason(s) Diagnoses Date Provider Care Team Description For Visit Members [facility] Maternal care for Sobbing Referring In Womens oth [place]. Provider: Health PA, abnormality and 8 [address] [place] [address] damage, Medical Sobbing L, 1522, unspObesity Center [address], [facility], [facility], , third Suite Center , trimesterEncounte [address], Drive US r [facility] 120, tel:[phone] normal , Josh COLLINS, third [email or web address] [address], [place], [address]. weeks gestation [place]. tel:316 of tel: [phone] [facility] Obesity Sobbing Referring In Womens complicating [place]. Provider: Health PA, , third 7 [address] [place] PO Box trimesterSmoking Medical Sobbing L, 1522, (tobacco) Center [address], [facility], [facility] [place], , third Suite Center , trimesterEncounte 120, Drive US r [facility] 120, tel:[phone] normal , KARINA, Josh, third [email or web address] [address], [place], [address]. weeks gestation [place]. tel:+ of tel: [phone] Aparna Moreno Maternal care for Nov-2 Sobbing Referring In Womens oth 0-201 [place]. Provider: Matthew LOPEZ, abnormality and 7 [address] damage, Medical Sobbing L, 1522, unspEncounter for Center [address], suprvsn of normal [address], Medical [place], , second Suite Center [id number], [email or web address] weeks 120, Drive [place] gestation of [place], [address], tel:[phone] Josh [place], [address], [place], [address]. [place]. tel: tel: [phone] Aparna Moreno Maternal care for Nov-2 Sobbing Referring In Womens Ultrasound oth 0-201 [place]. Provider: Matthew LOPEZ, abnormality and 7 [address] [place] PO [address] damage, Medical Sobbing L, 1522, unspObesity Center [address], complicating Drive, [facility] [place], , second Suite Center [id number], [email or web address] weeks 120, Drive [place] gestation of [place], [address], tel:[phone] Josh [place], [address], [place], [address]. [place]. tel: tel: [phone] Aparna Moreno Maternal care for Oct-2 Sobbing Referring In Womens ot 5-201 [place]. Provider: Matthew LOPEZ, abnormality and 7 [address] PO [address] damage, Medical Sobbing L, 1522, unspEncounter for Center [address], suprvsn of normal [facility], [facility] [place], , second Suite Center [id number], [email or web address] weeks 120, Drive US gestation of [place], [address], tel:[phone] Josh [place], [address], [place], [address]. [place]. tel: tel: [phone] Aparna Moreno Obesity Oct-2 Sobbing Referring In Womens Ultrasound complicating 5-201 [place]. Provider: Matthew LOPEZ, , second 7 [address] PO Box trimesterEncounte Medical Sobbing L, 1522, r for suprvsn of Center [address], normal , Drive, Medical [place], second Suite Center [id number], [email or web address] weeks 120, Drive US gestation of Josh [facility] 120, tel: Josh [place], [address], [place], [address]. [place]. tel: tel: [phone] [facility] Obesity Oct-1 Sobbing Referring In Womens complicating 2-201 [place]. Provider: Health PA, , second 7 700 [facility] Box trimesterSmoking Medical Sobbing L, 1522, (tobacco) Center [address], complicating [facility], [facility], , second Suite Center [id number], trimesterEncounte 120, Drive US r for suprvsn of [facility] 120, tel: normal , KARINA [place], second [address], [place], [address]. [email or web address] weeks [place]. tel: gestation of tel: [phone] [facility] Obesity Sep-1 Sobbing Referring In Womens complicating 5-201 [place]. Provider: Health JOHN, , second 7 700 [facility] Box trimesterEncounte Medical Sobbing L, 1522, r for suprvsn of Center [address], normal , [facility], [facility], second Suite Center [id number], [id number] weeks 120, Drive US gestation of Josh [facility] 120, tel: [place], [address], [place], [address]. [place]. tel: tel: [phone] [facility] Obesity Aug-1 Sobbing Referring In Womens complicating 4-201 [place]. Provider: Health JOHN, , first 7 700 [facility] Box trimesterSmoking Medical Sobbing L, 1522, (tobacco) Center [address], complicating [facility], [facility] [place], , first Suite Center [id number], trimesterEncntr 120, Drive US screen for Josh, [facility] 120, tel: infections w sexl [place], [place] [address], [place], [address]. transmissEncounte [place]. tel: r for screening tel: [phone] for oth [id number] infec/parastc diseasesEncounter for suprvsn of normal , first trimesterEncounte r for screening of [email or web address] weeks gestation of [facility] Sobbing In Womens 8-201 [facility], 7 [address] [place] [id number], [place], [id number], 120, [place] Josh, tel:-[phone] KARINA, [id number], [place]. tel: [phone] Family History Family Member Diagnosis Age At [...] constitution party ID Authorization(s) [employer]BS Out Of [facility] [id number] [employer] [place] [employer] - Medicaid [place] [id number] [employer] Out Of [facility] [id number] [employer] [place] [employer] - Medicaid [place] [id number] [id number] Social History Type Description Quantity Date Captured Alcohol Use Details No Caffeine Use Details Unknown Tobacco Use Status Smoking Status Former smoker Vital Signs Date / Height Weight BMI Pulse Blood Temperature Respiratory Body Head BMI Time: Rate Pressure Rate Surface Circumference percentile Area 222.00 33.7 135/70 2017 lbs 5 mm[Hg] 3:22 kg/m PM eter (2) Chief Complaint And Reason For Visit Unknown Chief Complaint And Reason For Visit Reason For Referral Reason For Referral Unknown Plan Of Care Date Type Action Status Appointment Karo Fernandes BOOKED Appointment Karo Fernandes BOOKED Future Order: Radiology Order Ultrasound, OB Limited ([id number]) Ordered Future Order: Radiology Order Complete OB Ultrasound > 14 Ordered Weeks ([id number]) Date Type Problem Goal Intervention Status Start [...]
[2017-09-25] MEDS ORDERED: ACETAMINOPHEN 500 MG TABLET PO PRN ×2 (12:27→20:45)
[2017-09-25] MEDS ORDERED: LIDOCAINE 1% (10mg/ml) 2mL INJ PF SDV ID PRN (12:27)
[2017-09-25] MEDS ORDERED: METHYLERGONOVINE 0.2 MG/ML INJECTION IM PRN (12:27)
[2017-09-25] MEDS ORDERED: CARBOPROST 250 MCG/ML INJECTION IM PRN (12:27)
[2017-09-25] MEDS ORDERED: MAG-AL + SIM ORAL LIQUID 30ml PO PRN ×2 (12:27→20:45)
[2017-09-25] MEDS ORDERED: CALCIUM CARBONATE Chewable 500mg TABLET PO PRN ×2 (12:27→20:45)
--- NOTE | 2017-09-25 12:31 | Anesthesia Preoperative Report ---
Anesthesia Epidural/Spinal Rec - Date and Time Date: 09/25/17 Preoperative Diagnosis: Procedure: Labor Epidural - Vital Signs /Para: G: P: - Medical History Neuro/Musculoskeletal: Reports: Depression - Surgical History Anesthesia Reactions: None Hx Family Anesthesia Reaction: No History of Motion Sickness: No - Social History Smoking Status: Current every day smoker Packs per day: 1 Pack-years: 10 Second Hand Exposure: No Substance Use Type: does not use Alcohol Intake Frequency: does not drink Hx Chewing Tobacco Use: No - Physical Exam Respiratory Exam: lungs clear Cardiovascular Exam: regular rate and rhythm, no murmur - Airway Assessment Mallampati Score: II TMD: 3 Fingerbreadths Neck Extension: good Overall Assessment: no airway concerns - ASA ASA Score: 2 - Discussion Discussion: Discussed risks/options/alternatives of anesthesia and questions answered. Patient consents. Nursing pain assessment noted. Attestation Statement: Prior to the delivery of any anesthetic medication, I examined the patient, developed the plan, obtained the patient's consent and discussed the risk and benefits of the procedure with the patient/guardian.
[2017-09-25] MEDS: LR 1,000 ML IV PRN ×3 (12:45→19:45)
[2017-09-25 13:03] VITALS: BMI 34.0
[2017-09-25] MEDS ORDERED: D5LR 1,000 ML IV PRN (16:00)
[2017-09-25] MEDS ORDERED: OXYTOCIN DRIP 30 UNIT/500 ML ML IV PRN (16:00)
[2017-09-25] MEDS ORDERED: NALOXONE 0.4 MG/ML INJECTION IVP PRN (17:59)
[2017-09-25] MEDS ORDERED: ONDANSETRON 4 MG/2 ML INJECTION IVP PRN (17:59)
[2017-09-25] MEDS ORDERED: ROPIVACAINE 1% 10MG/ML INJ 200 MG, SUFentanil 50 MCG in NS 100 ML EPI PRN (17:59)
[2017-09-25] MEDS ORDERED: DiphenhydrAMINE 50 MG/ML INJECTION IVP PRN (17:59)
[2017-09-25] MEDS ORDERED: DiphenhydrAMINE 25 MG CAPSULE PO PRN (20:45)
[2017-09-25] MEDS ORDERED: HYDROCORTISONE 2.5% CREAM 30gm RECTALLY PRN (20:45)
--- NOTE | 2017-09-25 20:45 | OB/GYN Procedure Note ---
Delivery date: 09/25/17 Events: Premature Rupture of Membrane Intrapartal events: Intolerance Induction method: per pitocin protocol Delivery monitor: external FHT, external uterine, internal FHT, internal uterine Route of delivery: Laceration description: Vaginal - 1st Degree Delivery repair: vicryl, chromic Anesthesia type: Spinal Disposition: floor - [place] Baby 1 gender: Male presentation: Vertex Placenta delivery description: Spontaneous cord vessel description: 3 Vessels at 1 minute: 7 at 5 minutes: 9
[2017-09-25] MEDS: IBUPROFEN 800 MG TABLET PO PRN (22:24)
[2017-09-26] MEDS: Oxycodone/Acetaminophen 5/325 1 TAB PO PRN ×4 (00:05→18:00)
[2017-09-26] MEDS ORDERED: DOCUSATE CALCIUM 240 MG CAPSULE PO SCH (09:00)
[2017-09-26] MEDS ORDERED: PRENATAL VITAMIN TABLET PO SCH (09:00)
[2017-09-26] MEDS: IBUPROFEN 800 MG TABLET PO PRN (11:58)
--- NOTE | 2017-09-26 12:37 | OB/GYN Progress Note ---
OB-PP Progress Note - General Maternal Group B Strep: Negative Maternal blood type: O+ Maternal Rubella Status: Immune - Subjective Date: 09/26/17 Lochia: Minimal Pain: controlled Voiding: voiding Nausea or Vomiting Present: No - Objective Vital Signs: Last Vital Signs Temp 98 F 09/26/17 04:00 Pulse 66 09/26/17 04:00 Resp 17 09/26/17 04:00 BP 120/71 09/26/17 04:00 Pulse Ox 96 09/26/17 00:28 Urine Output: good General: alert and oriented Abdomen: fundus firm, non-tender Extremities: non-tender Side: bilateral Site: ankle Edema Degree: 1+ Laboratory: Laboratory Results - last 24 hr 09/25/17 09/25/17 09/25/17 12:44 12:44 20:22 WBC 12.2 H RBC 3.90 L Hgb 12.0 Hct 35.5 L MCV 91.0 MCH 30.8 MCHC 33.8 RDW Std Deviation 41.8 Plt Count 217 MPV 10.6 Cord ABG pH 7.370 Cord ABG pCO2 39.5 Cord ABG pO2 36.0 H Cord ABG HCO3 23.0 Cord ABG Total CO2 24 Cord ABG Base Excess -2.0 Cord ABG O2 Sat 67.0 Cord VBG pH Cord VBG pCO2 Cord VBG pO2 Cord VBG HCO3 Cord VBG Total CO2 Cord VBG Base Excess Cord VBG O2 Sat Blood Type O Positive Antibody Screen Negative 09/25/17 20:22 WBC RBC Hgb Hct MCV MCH MCHC RDW Std Deviation Plt Count MPV Cord ABG pH Cord ABG pCO2 Cord ABG pO2 Cord ABG HCO3 Cord ABG Total CO2 Cord ABG Base Excess Cord ABG O2 Sat Cord VBG pH 7.279 Cord VBG pCO2 55.0 H Cord VBG pO2 20.0 Cord VBG HCO3 26.0 Cord VBG Total CO2 27 Cord VBG Base Excess -2.0 Cord VBG O2 Sat 26.0 Blood Type Antibody Screen - Assessment Assessment: SP, - Plan Plan: routine care, discharge home
[2017-09-26 16:01] VITALS: BP 118/59; PULSE 78; RESP 16; TEMP 97.9; O2SAT 98
--- NOTE | 2017-09-26 22:02 | Anesthesia Postoperative Note ---
- Date and Time Date: 09/26/17 Time: 22:02 - Status Patient Participated in Evaluation: Patient Participated in Person Vital Signs: Temperature 97.9 F 09/26/17 15:35 Pulse Rate 78 09/26/17 15:35 Respiratory Rate 16 09/26/17 15:35 Blood Pressure 118/59 09/26/17 15:35 Pulse Oximetry 98 09/26/17 15:35 Respiratory Function: Airway Patent Cardiovascular Function: Regular Pulse Mental Status: Alert and Oriented Pain Intensity: 0 Hydration: Taking PO Fluids Complications During Recover: None Apparent - Follow-Up Instructions Instructions: Per Surgeon
--- NOTE | 2017-09-27 10:37 | Labor and Delivery Note ---
DATE 09/25/2017 This is a G2, P1 who presented to Maternal/Child at [facility] with premature rupture of membranes. She was noted to be 1.5 and 60 upon presentation along with vertex with a positive ROM Plus test and a category 1 strip. She had occasional contraction and she was given six hours to see if she would go into spontaneous labor. After six hours, she was still unchanged on her cervix and Pitocin was started at the regular protocol of 2 every 15. She got to a max dose of 8 on Pitocin and was noted to have regular contractions and was 4 cm and was making change. She desired epidural anesthesia at that time which was accommodated. The Pitocin was left there. She was noted to have occasional early decels and variable decels and physician was called. She was noted to be 4.5 cm at this time and it was approximately 10 minutes to 7. The physician was en route to the hospital. When I got to the hospital, was checked and the patient had progressed by 7:20 to approximately 6 cm. She continued to progress rapidly until she delivered at approximately 2005. The forebag was ruptured and she was noted to have bloody amniotic fluid consistent with an abruption and the nutrition internship was available for delivery. At delivery she had a spontaneous vaginal delivery of a viable male infant in cephalic presentation with Apgars of 7/9. weight was 3016 grams. Name: Nick Villalobos. There was spontaneous delivery of the placenta soon after the . Epidural anesthesia was used prior to delivery and during delivery. She had bilateral periurethrals that were repaired with 2- 0 chromic and a first degree vaginal that was repaired with 2-0 Vicryl. Estimated blood loss was 300 mL. Patient and were doing well and stayed in the delivery room for recovery. [facility]
== END 2017-09-26 21:30 | disposition home or self-care (01) | DRG 774 ==
LOC: OBOBS 11:44 → MC 11:48
PROVIDERS: ADMIT Obstetrics & Gynecology; ATTEND Obstetrics & Gynecology